=== PATIENT | female | born 1965 | race Caucasian/White ===

== ENCOUNTER 2016-05-14 11:58 | Emergency (ER) | payer OTHER ==
[2016-05-14 12:08] VITALS: BMI 24.0
[2016-05-14 12:33] LABS: LEUKOCYTES/URINE NEG (NEGATIVE); NITRITE/URINE NEG (NEGATIVE); URINE OCCULT BLOOD NEG (NEG/TRACE)
[2016-05-14 12:35] LABS: AUTOMATED BASOPHIL 0.6 % (0-2); AUTOMATED EOSINOPHIL 1.2 % (0-5); AUTOMATED LYMPH 13.2 % (17-44); AUTOMATED MONOCYTE 5.3 % (3-10); AUTOMATED NEUTROPHIL 79.7 % (45-76); MPV 8.3 fL (7.4-10.4)
[2016-05-14 12:35] LABS: RBC/URINE 0-2 (0-5); WBC/URINE 0-2 (0-5)
[2016-05-14 12:54] LABS: BLOOD UREA NITROGEN 15 MG/DL (7-17); CALCIUM 9.5 MG/DL (8.4-10.2); CALCULATED OSMOLALITY 272 MOs/Kg (270-290); CHLORIDE 102 mEq/L (98-107); GLUCOSE 159 MG/DL (70-99); SODIUM LEVEL 139 mEq/L (137-146); TOTAL PROTEIN 7.4 G/DL (6.3-8.2)
[2016-05-14] MEDS ORDERED: ONDANSETRON HCL 4 MG/2 ML VIAL IV ONE (12:59)
[2016-05-14] MEDS ORDERED: HYDROmorphone 1 MG INJECTION IV ONE ×2 (12:59→13:35)
[2016-05-14] MEDS ORDERED: Pharmacy Review for Metformin - IV Contrast Given SCH (13:00)
--- NOTE | 2016-05-14 13:03 | EDPRACDOC ---
- General Information Information Source: Patient Mode Of Arrival: Car - History of Present Illness Onset: 1100 Pain Location: Reports: LLQ Pain Context: Reports: Spontaneous Pain Severity: Moderate Pain Quality: Reports: Sharp, Stabbing Pain Radiation: Reports: Flank (LT), Back (LT) : No (KAYKAY-BSO) Control Method: Reports: Hysterectomy, None (BSO) Blood Type: Unknown Modifying Factors: improves with: Position, Movement Female Associated Signs & Symptoms: Reports: Nausea Oral Intake: Decreased Urinary Output: Normal <Rupali Reeder - Last Filed: 05/14/16 14:55> <Clementina Carroll - Last Filed: 05/14/16 15:59> - General Information Chief Complaint: Abdominal Pain Stated Complaint: LEFT SIDE PAIN Time Seen by Provider: 05/14/16 12:43 Home Medications: Home Medications Sertraline HCl 50 mg PO DAILY 08/02/13 Cholecalciferol (Vitamin D3) [Vitamin D3] 400 unit PO DAILY 05/14/16 Cyanocobalamin (Vitamin B-12) [Vitamin B-12 (cyanocobalamin)] 250 mcg PO DAILY 05/14/16 Hydrocodone Bit/Acetaminophen [Hydrocodon-Acetaminophen 5-325] 1 - 2 tab PO Q6H PRN #20 tab 05/14/16 Ondansetron HCl [Zofran] 4 mg PO TID PRN #14 tablet 05/14/16 Progesterone,Micronized [Progesterone] 200 mg PO DAILY 05/14/16 Allergies/Adverse Reactions: Allergies Allergy/AdvReac Type Severity Reaction Status Date / Time Penicillins Allergy Itching Verified 05/14/16 12:05 - History of Present Illness HPI: PT C/O LLQ SHARP STABBING ABD PAIN WITH NAUSEA NO VOMITING OR DIARRHEA OR URINARY SYMPTOMS AT THIS TIME. PT STATES RADIATES TO HER LEFT FLANK AND BACK. TOTAL HYSTERECTOMY WITH BSO. (Rupali Reeder) ED Past Medical History - History Reviewed Yes Nurses notes reviewed and agree except as marked Travel Outside of [place] in the Last 3 Months?: No - Patient Medical History Psychological History: Reports: Depression Systemic History: Reports: Anemia (HEAVY PERIODS). Denies: Cancer Surgical History: Reports: Hysterectomy (WITH BSO) - Family Medical History Reports: Cancer (FATHER, NECK, LUNG) - Social Medical History Smoking Status: Never smoker ETOH: None Substance Abuse: None Lives With: Spouse Lives In: Home <Rupali Reeder - Last Filed: 05/14/16 14:55> - Patient Medical History GI/ History: Reports: PMH GI Yes/No Other (ENDOMETRIOSIS S/P LAP HYST / BSO) <Clementina Carroll - Last Filed: 05/14/16 15:59> EDM Review of Systems - Review of Systems ROS Negative Except as Marked: Yes All systems reviewed and were negative except as marked Constitutional: No Symptoms Reported. negative: Fever, Chills, Weakness, Fatigue, Loss of Appetite Eyes: No Symptoms Reported. negative: Redness, Blurred Vision, Double Vision, Discharge, Pain, Light Sensitive, Photophobia Ears: No Symptoms Reported. negative: Pain, Hearing Loss, Drainage, Ear Pulling Throat: No Symptoms Reported. negative: Pain, Swelling Nose: No Symptoms Reported. negative: Congestion, Bleeding, Discharge, Injection, Swelling, Deformity, Ecchymosis, Tender, Abrasion, Laceration Mouth: No Symptoms Reported. negative: Pain, Drooling Respiratory: No Symptoms Reported. negative: Cough, Brassy Cough, Barky Cough, Shortness of Breath, Wheezing, Hemoptysis Cardiovascular: No Symptoms Reported. negative: Chest Pain, Palpitations, Syncope, Edema, Orthopnea, PND, Skin Mottling, Cyanosis Gastrointestinal: Nausea, Pain. negative: Constipation, Diarrhea, Formula Intolerance, Melena, Vomiting Genitourinary: No Symptoms Reported. negative: Dysuria, Hematuria, Frequency, Discharge, Bleeding, Testicular Pain, Neurological: No Symptoms Reported. negative: Headache, Dizziness, Seizure, Numbness, Weakness, Speech Difficulty, Gait Difficulty Musculoskeletal: No Symptoms Reported. negative: Neck, Chestwall, Ribs, Back, Shoulder, Arm, Elbow, Forearm, Wrist, Hand, Pelvis, Hip, Femur, Knee, Leg, Ankle , Foot Integumentary: No Symptoms Reported. negative: Itching, Rash, Bruising, Wound Allergic/Immunologic: No Symptoms Reported. negative: Hives, Itching Hematologic: No Symptoms Reported. negative: Lymphadenopathy, Easy Bruising, Easy Bleeding Endocrine: No Symptoms Reported. negative: Weight Gain, Weight Loss Psychiatric: No Symptoms Reported. negative: Anxiety, Depression, Hallucinations, Insomnia, Suicidal <Rupali Reeder - Last Filed: 05/14/16 14:55> - Review of Systems Gastrointestinal: Diarrhea (ONE LARGE EPISODE THIS AM) <GlenYoannaClementina N - Last Filed: 05/14/16 15:59> - Physical Exam Constitutional: No apparent distress, Alert (Awake, UNCOMFORTABLE) Oriented to: Time, Person, Place - HEENT Head: Normal ( normocephalic) Eye Exam: Normal (PERRL, EOMI, Sclera white) Oropharynx: Normal (Pharynx:Moist without exudate,Gums-no swelling) Tympanic Membrane: Normal ENT EAC: Normal TMJ: Normal Nose: No Symptoms Reported (septum midline) Neck: Normal (FROM, trachea at midline) - Respiratory/Cardiovascular Respiratory: Normal - CTA (BBS clear to auscultation without adventitious sounds ) Cardiovascular: Normal (RRR without murmur, gallop or rub) - GI Auscultation: Normal (NABS) Palpation: Normal (Soft,No rebound or guarding, non distended) Tenderness: Moderate, Guarding, LLQ, Rebound Martínez's Sign: Negative - Bladder: Normal - Musculoskeletal Back: Normal (Non-Tender) Extremities: Normal (Normal tone, Pulses 2+ No cyanosis or edema, FROM) - Integumentary Skin: Normal, Warm, Dry Lymphatics: Normal (no adenopathy) - Neurologic Memory Impaired: Normal Motor Function: Normal (Normal tone, Pulses 2+ No cyanosis or edema, FROM) Cranial Nerve: Normal (CN II-X11 intact sensation, strength 5/5) Cerebellar: Normal Mood Description: Normal Perception: Normal <Rupali Reeder - Last Filed: 05/14/16 14:55> - Differential Diagnosis Diverticulitis, Urolithiasis, UTI, Ureterolithiasis - Re-evaluation Re-evaluation 1 Re-evaluation Time: 14:55 (PT STILL HURTING AFTER NARCOTIC PAIN MEDS, WAS GIVEN TORADOL 30MG 5MINUTES AGO AND STATES SHE IS HAVING MILD RELIEF WITH THAT. ) - Results All Results Reviewed and Normal except as Highlighted below: Yes 05/14/16 12:20 05/14/16 12:20 - Diagnostic Imaging CT ABD/PEL Image interpreted by: Radiologist <Rupali Reeder - Last Filed: 05/14/16 14:55> - Results 05/14/16 12:20 05/14/16 12:20 <Clementina Carroll N - Last Filed: 05/14/16 15:59> - Results WBC 6.2 xk/uL (3.8-10.8) 05/14/16 12:20 RBC 4.37 xM/uL (4.20-5.40) 05/14/16 12:20 Hgb 13.2 g/dL (12.0-16.0) 05/14/16 12:20 Hct 38.9 % (36-47) 05/14/16 12:20 MCV 89 fL (81-99) 05/14/16 12:20 MCH 30.1 pg (27-32) 05/14/16 12:20 MCHC 33.8 g/dl (33-36) 05/14/16 12:20 RDW 14.0 % (11.5-14.5) 05/14/16 12:20 Plt Count 251 xk/uL (130-400) 05/14/16 12:20 MPV 8.3 fL (7.4-10.4) 05/14/16 12:20 Neut % (Auto) 79.7 % (45-76) H 05/14/16 12:20 Lymph % (Auto) 13.2 % (17-44) L 05/14/16 12:20 [place] % (Auto) 5.3 % (3-10) 05/14/16 12:20 Eos % (Auto) 1.2 % (0-5) 05/14/16 12:20 Baso % (Auto) 0.6 % (0-2) 05/14/16 12:20 Absolute Neuts (auto) 4.90 xk/uL (1.7-8.2) 05/14/16 12:20 Absolute Lymphs (auto) 0.81 xk/uL (0.65-4.75) 05/14/16 12:20 Sodium 139 mEq/L (137-146) 05/14/16 12:20 Potassium 3.8 mEq/L (3.5-5.1) 05/14/16 12:20 Chloride 102 mEq/L (98-107) 05/14/16 12:20 Carbon Dioxide 26 mMOL/L (22-33) 05/14/16 12:20 Anion Gap 15 mEq/L (8-16) 05/14/16 12:20 BUN 15 MG/DL (7-17) 05/14/16 12:20 Creatinine 0.70 MG/DL (0.52-1.04) 05/14/16 12:20 Estimated GFR (MDRD) > 60 mL/min (>=60) 05/14/16 12:20 Glucose 159 MG/DL (70-99) H 05/14/16 12:20 Calculated Osmolality 272 MOs/Kg (270-290) 05/14/16 12:20 Calcium 9.5 MG/DL (8.4-10.2) 05/14/16 12:20 Total Bilirubin 0.5 MG/DL (0.2-1.3) 05/14/16 12:20 AST 34 IU/L (14-36) 05/14/16 12:20 ALT 36 IU/L (9-52) 05/14/16 12:20 Alkaline Phosphatase 100 IU/L (38-126) 05/14/16 12:20 Total Protein 7.4 G/DL (6.3-8.2) 05/14/16 12:20 Albumin 4.4 G/DL (3.5-5.0) 05/14/16 12:20 Urine Color Yellow 05/14/16 12:00 Urine Clarity Clear 05/14/16 12:00 Urine pH 6.0 (5.0-8.0) 05/14/16 12:00 Ur Specific [place] 1.035 05/14/16 12:00 Urine Protein Neg (NEG/TRACE) 05/14/16 12:00 Urine Glucose (UA) Neg (NEGATIVE) 05/14/16 12:00 Urine Ketones Neg (NEGATIVE) 05/14/16 12:00 Urine Occult Blood Neg (NEG/TRACE) 05/14/16 12:00 Urine Nitrite Neg (NEGATIVE) 05/14/16 12:00 Urine Bilirubin Neg (NEGATIVE) 05/14/16 12:00 Urine Urobilinogen 0.2 MG/DL (0-1) 05/14/16 12:00 Ur Leukocyte Esterase Neg (NEGATIVE) 05/14/16 12:00 Urine RBC 0-2 (0-5) 05/14/16 12:00 Urine WBC 0-2 (0-5) 05/14/16 12:00 Ur Epithelial Cells 1+ 05/14/16 12:00 Urine Bacteria Few (NEG/FEW) 05/14/16 12:00 Urine Mucus Mod (NEG/OCC) H 05/14/16 12:00 Lab Results 05/14/16 05/14/16 05/14/16 12:20 12:20 12:00 WBC 6.2 RBC 4.37 Hgb 13.2 Hct 38.9 MCV 89 MCH 30.1 MCHC 33.8 RDW 14.0 Plt Count 251 MPV 8.3 Neut % (Auto) 79.7 H Lymph % (Auto) 13.2 L [place] % (Auto) 5.3 Eos % (Auto) 1.2 Baso % (Auto) 0.6 Absolute Neuts (auto) 4.90 Absolute Lymphs (auto) 0.81 Sodium 139 Potassium 3.8 Chloride 102 Carbon Dioxide 26 Anion Gap 15 BUN 15 Creatinine 0.70 Estimated GFR (MDRD) > 60 Glucose 159 H Calculated Osmolality 272 Calcium 9.5 Total Bilirubin 0.5 AST 34 ALT 36 Alkaline Phosphatase 100 Total Protein 7.4 Albumin 4.4 Urine Color Yellow Urine Clarity Clear Urine pH 6.0 Ur Specific [place] 1.035 Urine Protein Neg Urine Glucose (UA) Neg Urine Ketones Neg Urine Occult Blood Neg Urine Nitrite Neg Urine Bilirubin Neg Urine Urobilinogen 0.2 Ur Leukocyte Esterase Neg Urine RBC 0-2 Urine WBC 0-2 Ur Epithelial Cells 1+ Urine Bacteria Few Urine Mucus Mod H (Rupali Reeder) (Clementina Carroll) - Diagnostic Imaging CT ABD/PEL 05/14/16 14:56 IMPRESSION: 1. No acute findings. No findings to explain this patient's symptoms. 2. Status post hysterectomy. 3. Sub cm probable left renal cyst. Degenerative changes of the visualized spine. (Rupali Reeder) 05/14/16 15:57 Patient Name: SUJATA MCKINNON LOC: ED : 1965 AGE: 50 Order Date:05/14/16 Date of Service: Report # [id number] Ord Physician: Rupali Reeder Exam # [id number] Emergency Physician: Provider,ER Exam(s): [id number] CT/CT ABD-PELV W/IV CM CLINICAL DATA: Sharp stabbing left lower quadrant pain, radiating to the back, beginning today. EXAM: CT ABDOMEN AND PELVIS WITH CONTRAST TECHNIQUE: Multidetector CT imaging of the abdomen and pelvis was performed using the standard protocol following bolus administration of intravenous contrast. CONTRAST: 100 mL of Isovue 370 intravenous contrast COMPARISON: CT, 04/26/2008 FINDINGS: Lung bases: Minimal dependent subsegmental atelectasis. Otherwise clear. Heart size. Liver, spleen, gallbladder, pancreas, adrenal glands: Unremarkable. Kidneys, ureters, bladder: Sub cm low-density lesion in the midpole the right kidney consistent with a cyst. No other renal masses or lesions. No stones. No hydronephrosis. Normal ureters. Bladder unremarkable. Uterus and adnexa: Uterus surgically absent. No adnexal/ pelvic masses. Lymph nodes: No adenopathy. Ascites: None. Gastrointestinal: Stomach, small bowel and colon are unremarkable. Appendix not visualized. No evidence of appendicitis. Musculoskeletal: Degenerative changes noted in the lower lumbar spine. No osteoblastic or osteolytic lesions. IMPRESSION: 1. No acute findings. No findings to explain this patient's symptoms. 2. Status post hysterectomy. 3. Sub cm probable left renal cyst. Degenerative changes of the visualized spine. Electronically Signed By: Denis Oreilly M.D. On: 05/14/2016 13:48 Electronically Signed By: Denis Oreilly MD Electronically Signed Date/Time: [id number] Dictate Date/Time: 05/14/16 1342 Technologist: Students,Radiology Transcribed By: Jeffrey Transcribed Date/Time: 05/14/16 1348 (Clementina Carroll) <Rupali Reeder - Last Filed: 05/14/16 14:55> - Departure Disposition: Home Education/Counseling Given To: Patient, Family Member Education/Counseling Given Regarding: Diagnosis, Treatment, Prognosis <Clementina Carroll - Last Filed: 05/14/16 15:59> - Departure Condition: Good Final Diagnosis: Abdominal pain Instructions: Acute Abdominal Pain (ED) Referrals: Jefferson Navarro MD [Primary Care Provider] - One Week Prescriptions: Hydrocodone Bit/Acetaminophen [Hydrocodon-Acetaminophen 5-325] 1 - 2 tab PO Q6H PRN #20 tab PRN Reason: Pain Ondansetron HCl [Zofran] 4 mg PO TID PRN #14 tablet PRN Reason: NAUSEA OR VOMITING Additional Instructions: [id number] Return to the Emergency Department for worse or different abdominal problems, especially in the next 12 - 24 hours. The test today did not determine the cause of your pain.. RETURN TO THE EMERGENCY DEPARTMENT FOR ANY BLOODY DIARRHEA, HIGH FEVER, DEHYDRATION, WORSE OR DIFFERENT ABDOMINAL PAIN.
[2016-05-14] MEDS ORDERED: NS 1,000 ML IV ONE ×2 (13:36)
--- NOTE | 2016-05-14 13:51 | DIRPT ---
ADDENDUM REPORT: 05/16/2016 11:10 ADDENDUM: There is an error in the impression. Under #3, it should read sub cm probable RIGHT renal cyst. Electronically Signed By: Denis Oreilly M.D. On: 05/16/2016 11:10 CLINICAL DATA: Sharp stabbing left lower quadrant pain, radiating to the back, beginning today. EXAM: CT ABDOMEN AND PELVIS WITH CONTRAST TECHNIQUE: Multidetector CT imaging of the abdomen and pelvis was performed using the standard protocol following bolus administration of intravenous contrast. CONTRAST: 100 mL of Isovue 370 intravenous contrast COMPARISON: CT, 04/26/2008 FINDINGS: Lung bases: Minimal dependent subsegmental atelectasis. Otherwise clear. Heart size. Liver, spleen, gallbladder, pancreas, adrenal glands: Unremarkable. Kidneys, ureters, bladder: Sub cm low-density lesion in the midpole the right kidney consistent with a cyst. No other renal masses or lesions. No stones. No hydronephrosis. Normal ureters. Bladder unremarkable. Uterus and adnexa: Uterus surgically absent. No adnexal/ pelvic masses. Lymph nodes: No adenopathy. Ascites: None. Gastrointestinal: Stomach, small bowel and colon are unremarkable. Appendix not visualized. No evidence of appendicitis. Musculoskeletal: Degenerative changes noted in the lower lumbar spine. No osteoblastic or osteolytic lesions. IMPRESSION: 1. No acute findings. No findings to explain this patient's symptoms. 2. Status post hysterectomy. 3. Sub cm probable left renal cyst. Degenerative changes of the visualized spine. Electronically Signed: By: Denis Oreilly M.D. On: 05/14/2016 13:48
[2016-05-14] MEDS ORDERED: KETOROLAC TROMETH 30 MG/ML VIAL IV ONE (14:22)
[2016-05-14] MEDS ORDERED: OXYCODONE HCL 5 MG TABLET PO ONE (15:56)
[2016-05-14 16:09] VITALS: BP 105/51; PULSE 69; TEMP 97.9
== END 2016-05-14 16:15 | disposition home or self-care (01) ==
LOC: ED 11:58
DX: R10.9 Unspecified abdominal pain (principal)
CPT/HCPCS: 36415; 74177; 80053; 81001; 85025; 96361; 96374; 96375; 99284; A9698; J1170; J1885; J2405; J3490

== ENCOUNTER 2016-05-15 22:58 | Emergency (ER) | payer OTHER ==
[2016-05-15 22:58] VITALS: BMI 24.0
[2016-05-15 23:58] LABS: BLOOD UREA NITROGEN 16 MG/DL (7-17); CALC CORRECTED 9.3 MG/DL (8.4-10.2); CALCIUM 9.1 MG/DL (8.4-10.2); CALCULATED OSMOLALITY 268 MOs/Kg (270-290); CHLORIDE 103 mEq/L (98-107); GLUCOSE 87 MG/DL (70-99); SODIUM LEVEL 139 mEq/L (137-146); TOTAL PROTEIN 6.7 G/DL (6.3-8.2)
[2016-05-16 00:03] LABS: AUTOMATED BASOPHIL 0.9 % (0-2); AUTOMATED EOSINOPHIL 3.4 % (0-5); AUTOMATED LYMPH 35.4 % (17-44); AUTOMATED MONOCYTE 8.6 % (3-10); AUTOMATED NEUTROPHIL 51.7 % (45-76); MPV 8.6 fL (7.4-10.4)
[2016-05-16 00:13] LABS: RBC/URINE 0-2 (0-5); WBC/URINE 0-2 (0-5)
[2016-05-16 00:24] LABS: LEUKOCYTES/URINE NEG (NEGATIVE); NITRITE/URINE NEG (NEGATIVE); URINE OCCULT BLOOD NEG (NEG/TRACE)
--- NOTE | 2016-05-16 01:22 | EDPRACDOC ---
- General Information Chief Complaint: Female Urogenital Problems Stated Complaint: LT FLANK PAIN Time Seen by Provider: 05/16/16 01:13 Information Source: Patient Mode Of Arrival: Car Home Medications: Home Medications Sertraline HCl 50 mg PO DAILY 08/02/13 Cholecalciferol (Vitamin D3) [Vitamin D3] 400 unit PO DAILY 05/14/16 Cyanocobalamin (Vitamin B-12) [Vitamin B-12 (cyanocobalamin)] 250 mcg PO DAILY 05/14/16 Hydrocodone Bit/Acetaminophen [Hydrocodon-Acetaminophen 5-325] 1 - 2 tab PO Q6H PRN #20 tab 05/14/16 Ondansetron HCl [Zofran] 4 mg PO TID PRN #14 tablet 05/14/16 Progesterone,Micronized [Progesterone] 200 mg PO DAILY 05/14/16 Dicyclomine HCl [Bentyl] 20 mg PO Q6H PRN #30 tab 05/16/16 Allergies/Adverse Reactions: Allergies Allergy/AdvReac Type Severity Reaction Status Date / Time Penicillins Allergy Itching Verified 05/14/16 12:05 - History of Present Illness Onset: 2 days ago HPI: PT COMPLAINS OF PAIN IN LLQ, SHARP AND STABBING, WORSE WITH WALKING, PT STATES PAIN X 2 DAYS, SEEN IN THE ED ON 05/14/16 FOR SAME, USING HYDROCODONE AND ZOFRAN WITHOUT RELIEF. Pain Location: Reports: LLQ Pain Context: Reports: Spontaneous Pain Severity: Moderate Pain Quality: Reports: Sharp, Stabbing Pain Radiation: Reports: No Radiation Last Menstrual Period: HYSTERECTOMY Control Method: Reports: Hysterectomy Blood Type: Unknown Adult Abdominal History: Denies: Abdominal Surgery, Urolithiasis, Bowel Obstruction, Similar Pain (dx) Female Abdominal History: Denies: Abdominal Surgery, UTI, Ectopic, PID, Urolithiasis, Similar Pain (dx) Modifying Factors: improves with: Position, Movement Female Associated Signs & Symptoms: Reports: Diarrhea (ONE EPISODE AT ONSET OF SYMPTOMS). Denies: Nausea, Frequency, Vaginal Bleeding, Vomiting, Hematemesis, Anorexia, Melena, Dysuria, Fever, Urgency, Hematuria, Chills, Vaginal Discharge Oral Intake: Normal Urinary Output: Normal ED Past Medical History - History Reviewed Yes Nurses notes reviewed and agree except as marked - Patient Medical History Psychological History: Reports: Depression Systemic History: Reports: Anemia (HEAVY PERIODS). Denies: Cancer Surgical History: Reports: Hysterectomy - Family Medical History Reports: Cancer (FATHER, NECK, LUNG) - Social Medical History Smoking Status: Never smoker ETOH: None Substance Abuse: None EDM Review of Systems - Review of Systems Constitutional: negative: Chills, Fever Eyes: negative: Blurred Vision, Double Vision Ears: negative: Drainage Throat: negative: Pain Nose: negative: Congestion, Discharge Respiratory: negative: Cough, Shortness of Breath, Wheezing Cardiovascular: negative: Chest Pain, Palpitations Gastrointestinal: Diarrhea, Pain. negative: Nausea, Vomiting Genitourinary: negative: Dysuria, Frequency Neurological: negative: Dizziness, Headache, Numbness, Weakness Musculoskeletal: No Symptoms Reported Integumentary: No Symptoms Reported - Physical Exam Constitutional: Alert (Awake), No apparent distress Oriented to: Time, Person, Place Last recorded Vital Signs: Last Vital Signs Temp 98.3 F 05/15/16 23:15 Pulse 61 05/16/16 01:20 Resp 18 05/16/16 01:20 BP 114/55 L 05/16/16 01:20 Pulse Ox 97 05/16/16 01:20 Oxygen Pulse Oxygen Saturation 97 O2 Device Room Air Oxygen Flow Rate Fraction of Inspired Oxygen ( FIO2) - HEENT Head: Normal ( normocephalic) Eye Exam: Normal (PERRL, EOMI, Sclera white) Oropharynx: Normal (Pharynx:Moist without exudate,Gums-no swelling) Tympanic Membrane: Normal ENT EAC: Normal TMJ: Normal Nose: No Symptoms Reported (septum midline) Neck: Normal (FROM, trachea at midline) - Respiratory/Cardiovascular Respiratory: Normal - CTA (BBS clear to auscultation without adventitious sounds ) Cardiovascular: Normal (RRR without murmur, gallop or rub) - GI Auscultation: Normal (NABS) Palpation: Normal (Soft,No rebound or guarding, non distended) Tenderness: Mild, LLQ. negative: Guarding, Rebound, Rigidity Martínez's Sign: Negative - Musculoskeletal Back: Normal (Non-Tender) Extremities: Normal (Normal tone, Pulses 2+ No cyanosis or edema, FROM) - Integumentary Skin: Normal, Warm, Dry Lymphatics: Normal (no adenopathy) - Neurologic Memory Impaired: Normal Motor Function: Normal (Normal tone, Pulses 2+ No cyanosis or edema, FROM) Cranial Nerve: Normal (CN II-X11 intact sensation, strength 5/5) Cerebellar: Normal Mood Description: Normal Perception: Normal - Differential Diagnosis Diverticulitis, UTI, Ureterolithiasis - Results 05/15/16 23:24 05/15/16 23:24 WBC 5.2 xk/uL (3.8-10.8) 05/15/16 23:24 RBC 3.97 xM/uL (4.20-5.40) L 05/15/16 23:24 Hgb 12.0 g/dL (12.0-16.0) 05/15/16 23:24 Hct 35.7 % (36-47) L 05/15/16 23: MCV 90 fL (81-99) 05/15/16 23: MCH 30.2 pg (27-32) 05/15/16 23:24 MCHC 33.6 g/dl (33-36) 05/15/16 23: RDW 13.9 % (11.5-14.5) 05/15/16 23: Plt Count 243 xk/uL (130-400) 05/15/16 23:24 MPV 8.6 fL (7.4-10.4) 05/15/16 23:24 Neut % (Auto) 51.7 % (45-76) 05/15/16 23: Lymph % (Auto) 35.4 % (17-44) 05/15/16 23:24 [place] % (Auto) 8.6 % (3-10) 05/15/16 23: Eos % (Auto) 3.4 % (0-5) 05/15/16 23:24 Baso % (Auto) 0.9 % (0-2) 05/15/16 23:24 Absolute Neuts (auto) 2.65 xk/uL (1.7-8.2) 05/15/16 23: Absolute Lymphs (auto) 1.82 xk/uL (0.65-4.75) 05/15/16 23:24 Sodium 139 mEq/L (137-146) 05/15/16 23:24 Potassium 4.6 mEq/L (3.5-5.1) 05/15/16 23:24 Chloride 103 mEq/L (98-107) 05/15/16 23:24 Carbon Dioxide 28 mMOL/L (22-33) 05/15/16 23:24 Anion Gap 13 mEq/L (8-16) 05/15/16 23:24 BUN 16 MG/DL (7-17) 05/15/16 23:24 Creatinine 0.70 MG/DL (0.52-1.04) 05/15/16 23:24 Estimated GFR (MDRD) > 60 mL/min (>=60) 05/15/16 23:24 Glucose 87 MG/DL (70-99) 05/15/16 23:24 Calculated Osmolality 268 MOs/Kg (270-290) L 05/15/16 23:24 Calcium 9.1 MG/DL (8.4-10.2) 05/15/16 23:24 Corrected Calcium 9.3 MG/DL (8.4-10.2) 05/15/16 23:24 Total Bilirubin 0.3 MG/DL (0.2-1.3) 05/15/16 23:24 AST 20 IU/L (14-36) 05/15/16 23:24 ALT 36 IU/L (9-52) 05/15/16 23:24 Alkaline Phosphatase 77 IU/L (38-126) 05/15/16 23:24 Total Protein 6.7 G/DL (6.3-8.2) 05/15/16 23:24 Albumin 3.8 G/DL (3.5-5.0) 05/15/16 23:24 Urine Color Yellow 05/15/16 23:24 Urine Clarity Clear 05/15/16 23:24 Urine pH 6.0 (5.0-8.0) 05/15/16 23:24 Ur Specific [place] 1.020 (1.003-1.035) 05/15/16 23:24 Urine Protein Neg (NEG/TRACE) 05/15/16 23:24 Urine Glucose (UA) Neg (NEGATIVE) 05/15/16 23:24 Urine Ketones Neg (NEGATIVE) 05/15/16 23:24 Urine Occult Blood Neg (NEG/TRACE) 05/15/16 23:24 Urine Nitrite Neg (NEGATIVE) 05/15/16 23:24 Urine Bilirubin Neg (NEGATIVE) 05/15/16 23:24 Urine Urobilinogen 0.2 MG/DL (0-1) 05/15/16 23:24 Ur Leukocyte Esterase Neg (NEGATIVE) 05/15/16 23:24 Urine RBC 0-2 (0-5) 05/15/16 23:24 Urine WBC 0-2 (0-5) 05/15/16 23:24 Ur Epithelial Cells Occ 05/15/16 23:24 Urine Mucus Occ (NEG/OCC) 05/15/16 23:24 Lab Results 05/15/16 05/15/16 05/15/16 23:24 23:24 23:24 WBC 5.2 RBC 3.97 L Hgb 12.0 Hct 35.7 L MCV 90 MCH 30.2 MCHC 33.6 RDW 13.9 Plt Count 243 MPV 8.6 Neut % (Auto) 51.7 Lymph % (Auto) 35.4 [place] % (Auto) 8.6 Eos % (Auto) 3.4 Baso % (Auto) 0.9 Absolute Neuts (auto) 2.65 Absolute Lymphs (auto) 1.82 Sodium 139 Potassium 4.6 Chloride 103 Carbon Dioxide 28 Anion Gap 13 BUN 16 Creatinine 0.70 Estimated GFR (MDRD) > 60 Glucose 87 Calculated Osmolality 268 L Calcium 9.1 Corrected Calcium 9.3 Total Bilirubin 0.3 AST 20 ALT 36 Alkaline Phosphatase 77 Total Protein 6.7 Albumin 3.8 Urine Color Yellow Urine Clarity Clear Urine pH 6.0 Ur Specific [place] 1.020 Urine Protein Neg Urine Glucose (UA) Neg Urine Ketones Neg Urine Occult Blood Neg Urine Nitrite Neg Urine Bilirubin Neg Urine Urobilinogen 0.2 Ur Leukocyte Esterase Neg Urine RBC 0-2 Urine WBC 0-2 Ur Epithelial Cells Occ Urine Mucus Occ - Additional Information OLD CHART REVIEWED, CT ABD/PELVIS ON 05/14/16 WAS NORMAL EXCEPT FOR RENAL CYST. Decision Time to Discharge: 01:26 - Departure Disposition: Home Condition: Stable Final Diagnosis: Abdominal pain Qualifiers: Abdominal location: left lower quadrant Qualified Code(s): R10.32 - Left lower quadrant pain Instructions: Abdominal Pain (ED) Education/Counseling Given To: Patient Education/Counseling Given Regarding: Diagnosis, Treatment, Prognosis, Follow Up Referrals: Jefferson Navarro MD [Primary Care Provider] - One Week Prescriptions: Dicyclomine HCl [Bentyl] 20 mg PO Q6H PRN #30 tab PRN Reason: Abdominal Pain Additional Instructions: FOLLOW UP WITH YOUR PRIMARY CARE DOCTOR FOR FURTHER EVALUATION.
[2016-05-16] MEDS ORDERED: DICYCLOMINE 10 MG CAP PO ONE (01:28)
[2016-05-16 01:58] VITALS: BP 109/66; PULSE 66; TEMP 98
== END 2016-05-16 01:57 | disposition home or self-care (01) ==
LOC: ED 22:58
DX: R10.32 Left lower quadrant pain (principal)
CPT/HCPCS: 36415; 80053; 81001; 85025; 99283; J3490